=== PATIENT | female | born 1960 | race Caucasian/White ===

== ENCOUNTER → 2020-01-19 14:28 | Outpatient (BNVA) | payer OTHER, SELFPAY | PROVIDERS: PCP Internal Medicine; Referring Provider Internal Medicine; Visit Provider Hospitalist | DX: Z76.89 Persons encountering health services in other specified circumstances (principal) ==

== ENCOUNTER 2020-12-28 14:37 | Outpatient (REF) | payer OTHER, SELFPAY ==
--- NOTE | ~2020-12-28 | CT_ITS ---
EXAMINATION: CT CHEST SCREENING CLINICAL INFORMATION: 40 years of smoking, one pack a day. Quit 5 years ago. COMPARISON: None. TECHNIQUE: Multidetector volumetric CT imaging of the chest is performed without contrast using low dose technique. Additional 2D coronal and sagittal reformatted images and axial 3D maximum intensity projection (MIP) images are generated on the CT workstation. This CT examination was performed using dose optimization techniques as appropriate, variously including the following: *Automated exposure control *Adjustment of mA and/or kV according to patient size (this includes techniques or standardized protocols for targeted exams where dose is matched to indication/reason for exam; i.e. extremities or head) *Use of iterative reconstruction technique DLP: 38 mGy-cm FINDINGS: LUNGS: There is mild emphysematous changes of lungs without any acute pneumonic process. There is a 1 mm nodule in the lingula axial image 254/6. No additional pulmonary nodules, mass or groundglass density seen.. MEDIASTINUM: The thyroid lobes are symmetric and normal. The central trachea and the bronchi are widely patent. Heart size and the great vessels are normal caliber. There is no pericardial effusion. PLEURA: There is no pleural effusion. No pleural mass or thickening. AXILLA: No lymphadenopathy. UPPER ABDOMEN: Visualized liver, spleen, pancreas and bilateral adrenal glands are unremarkable. OSSEOUS STRUCTURES: No lytic or sclerotic process seen. CT/CT lung screening IMPRESSION: Mild emphysematous changes of lungs without any acute pneumonic process. 1 mm nodule visualized in the lingula. ASSESSMENT: Lung-RADS category 2: Benign RECOMMENDATION: Low-dose annual CT chest.
== END 2020-12-28 14:38 | disposition home or self-care (01) ==
LOC: HO.CT 14:37
PROVIDERS: Visit Provider Physician Assistant Medical
DX: Z12.2 Encounter for screening for malignant neoplasm of respiratory organs (principal); Z87.891 Personal history of nicotine dependence
CPT/HCPCS: 71271

== ENCOUNTER → 2021-06-07 13:20 | Outpatient (BNVA) | payer OTHER, SELFPAY | PROVIDERS: PCP Internal Medicine; Visit Provider Hospitalist | DX: J43.9 Emphysema, unspecified (principal); R91.8 Other nonspecific abnormal finding of lung field; Z87.891 Personal history of nicotine dependence | CPT/HCPCS: 99212 ==

== ENCOUNTER 2022-06-09 15:04 | Outpatient (REF) | payer OTHER, SELFPAY ==
--- NOTE | ~2022-06-09 | CT_ITS ---
EXAMINATION: LUNG CANCER SCREENING CT CHEST WITHOUT CONTRAST CLINICAL INFORMATION: Former smoker with 40 pack year history, quit one year ago COMPARISON: 12/28/2020 TECHNIQUE: Multidetector volumetric CT imaging of the chest was obtained noncontrast using low dose screening CT technique. Axial thin section 0.625 mm reformations in soft tissue and lung windows were obtained. Sagittal and coronal reformations were obtained. Axial MIP images were also created and reviewed. This CT examination was performed using dose optimization techniques as appropriate, variously including the following: *Automated exposure control *Adjustment of mA and/or kV according to patient size (this includes techniques or standardized protocols for targeted exams where dose is matched to indication/reason for exam; i.e. extremities or head) *Use of iterative reconstruction technique TOTAL EXAM DLP: 41 mGy-cm. FINDINGS: PULMONARY NODULES: No suspicious pulmonary nodules. There are a few stable punctate micronodules (see mac images). LUNGS / PLEURA: Mild emphysema. Diffuse mild bronchial wall thickening without bronchiectasis. Stable biapical pleural-parenchymal scarring. No pleural effusion or pneumothorax. MEDIASTINUM / YULIET: Heart normal in size without pericardial effusion. Great vessels normal caliber. No lymphadenopathy. Coronary calcifications present. Imaged thyroid gland unremarkable. CHEST WALL / AXILLA: Unremarkable. UPPER ABDOMEN: Included portions grossly unremarkable allowing for limitations in technique. OSSEOUS STRUCTURES: No acute or suspicious osseous abnormalities. CT/CT lung screening IMPRESSION: * No evidence of pulmonary malignancy. * There are no pulmonary nodules that meet criteria for short interval follow-up at this time. ASSESSMENT: Lung RADS category: 2. Benign appearance or behavior. Nodules with a very low likelihood of becoming a clinically active cancer due to size or lack of growth. Continue annual screening with low-dose CT in 12 months. Probability of malignancy less than 1%. INCIDENTAL FINDINGS (S CATEGORY): None. RECOMMENDATION: Follow up low dose CT chest in 1 year.
== END 2022-06-09 15:05 | disposition home or self-care (01) ==
LOC: HO.CT 15:04
PROVIDERS: PCP Internal Medicine; Visit Provider Physician Assistant Medical
DX: Z12.2 Encounter for screening for malignant neoplasm of respiratory organs (principal); Z87.891 Personal history of nicotine dependence
CPT/HCPCS: 71271

== ENCOUNTER 2023-02-05 15:02 | Outpatient (AMB) | payer OTHER, SELFPAY ==
--- NOTE | 2023-02-05 15:08 | A.OFFVIS_ITS ---
Intake Vital Signs 02/05/23 15:09 Height 5 ft 8 in Weight 121 lb BMI 18.4 Pulse 55 Pulse Source Pulse Oximeter Pulse Oximetry (%) 98 Oxygen Delivery Method Room Air Intake Visit Reasons: COPD Stockfeed Miller Required: No Allergies Latex Allergy (Mild, Uncoded 02/05/23 15:10) Rash and Hives HPI HPI Comments History of Present Illness Details The patient is a 62-year-old woman was a former smoker with a known history of COPD, pulmonary nodules. Her nodules have been followed for many ye ars and had been stable during her last CT scan I believe in 2018. The patient has had a rescue inhaler that she has not using a few years. At this point the medications and needs to get a new 1. She does have some dyspnea on exertion but is mild in usually gets better with rest. She denies any significant coughing. Her major complaint right now significant abdominal pain even after small amount eating. 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 She was referred to a vascular surgery in [facility] to the surgery. She was not sure about done therefore requested a 2nd opinion in [place]. Unfortunately, there were not able to help since the did have a lot of the information that she has had previously. As far as the pulmonary nodules she has been very stable. She did quit smoking about 5-6 years ago. She does carry a greater than 30 pack-year history of smoking as she started smoking in her teens. Therefore, I will refer her to the lung cancer screening program as the best way to follow this pulmonary nodules. 01/19/2020 the patient has a telephone visit. Overall doing well. He has not required any inhalers. She has been active exercising. Denies any smoking or any secondhand smoke. She does have a cough intermittently. He is usually nonproductive. We did review her CT scan of the chest that she had back in September 2019 demonstrating small pulmonary nodules. She also has hyperinflation of the lungs. No significant findings. Her next CAT scan will be for September of 2020. Otherwise patient is without any complaints. 06/07/2021 the patient is here for a pulmonary follow-up visit. Overall she is doing well. She has been staying active. Denies any significant shortness of breath. She still complains of a cough which is usually productive in nature. She is not interested in using any inhalers at this time. She does have a rescue inhaler that she has never used. She does not want to get d ependent on it . She is concerned because of the respiratory issues that she has developed another pupils are around at still smokes do not have these respiratory symptoms. Explained to her that is related to her genetic makeup and how she deals with environmental exposures. 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 We did review her CT scan of the chest again demonstrating very small pulmonary nodules that need follow-up. She has the scheduled low- dose CT scan for the fall of 2021. 02/05/2023 the patient is here for a pulmonary follow-up visit. The patient is feeling better at this time. However, several weeks ago she started feeling some chest tightness. Was not sure if it was related to her airway disease or something else. The patient ran out of her rescue inhaler as well. She is participating the lung cancer screening program so therefore we did review the CT scan that she had over the summer. No evidence of any acute disease. Does have some areas suggestive of bronchitis. In addition to that stable pulmonary nodules. She will have a repeat CT scan a year from the last 1. This is all based on the lung cancer screening program. Will go ahead and provide her with a short-acting beta agonist. We contemplated the use of a Symbicort inhaler as needed. However, the patient is resistant to the idea of taking too much medication. Therefore will stick with the short-acting beta agonist. I did provide her with a peak flow. Therefore she can measure her peak flows when she is having episodes of chest tightness to assess her airway resistance before she treats herself with the inhaler. Will have her undergo pulmonary function studies when she returns. If the patient has any worsening symptoms prior to the next visit she will call the office for an earlier assessment. [facility] Medical History (Updated 02/05/23 @ 22:23 by Sae Hernandez MD) Personal history of nicotine dependence Pulmonary nodules COPD (chronic obstructive pulmonary disease) Social History (Updated 06/07/21 @ 13:34 by GUS Johnson) Patient Tobacco Use Status: Former Tobacco user Tobacco use type: Cigarette Years Smoked: 30 Years Review of Systems Const Denies night sweats ENT Denies change in voice, Denies lip swelling, Denies mouth pain, Reports nasal congestion, Reports nasal discharge and Denies tongue swelling Card Denies chest pain and Denies dyspnea on exertion Resp Denies chest congestion, Reports cough and Denies dyspnea on exertion GI Denies abdominal pain Musc Denies no additional complaints Neuro Denies Neuro-related abnormal movements Psych Denies no additional complaints Nader/Lymph Denies easy bleeding and Denies lymphadenopathy Aller/Immun Denies lip swelling and Denies tongue swelling Physical Exam Vital Signs: Last Vital Signs Pulse 55 02/05/23 15:09 Pulse Ox 98 02/05/23 15:09 Oxygen Delivery Method Room Air 02/05/23 15:09 BMI result Body Mass Index 18.4 Const General: alert Neck Neck: Yes normal visual inspection, Yes full ROM and Yes no lymphadenopathy Chest Chest palpation & inspection: normal inspection of the chest Resp Effort & Inspection: normal respiratory effort Auscultation: clear to auscultation bilaterally and no wheezes Cardio Rate: regular rate Rhythm: regular rhythm Heart sounds: S1 normal heart sound present and S2 normal heart sound present GI Palpation (GI): Soft to palpation and nontender Auscultation: normal bowel sounds Skin General skin exam: rashes and/or lesions noted Assessment & Plan Assessment & Plan (1) COPD (chronic obstructive pulmonary disease): Code(s): J44.9 - Chronic obstructive pulmonary disease, unspecified Qualifiers: COPD type: chronic bronchitis Chronic bronchitis type: simple Qualified Code(s): J41.0 - Simple chronic bronchitis Plan: MALLY as needed (2) Pulmonary nodules: Code(s): R91.8 - Other nonspecific abnormal finding of lung field Plan: CT chest LDCT 09/2020 Plan continue short-acting beta agonist as needed Peak flows low-dose CT scan yearly RADS 2 PFTs 6 months F/U in 6 months Orders: Orders PFT pulmonary function test 5 Months J44.9 - Chronic obstructive pulmonary disease, unspecified Medications: Changed From albuterol sulfate 90 mcg/actuation inhalation To albuterol sulfate 90 mcg/actuation 2 inhalations inhalation Q6H 30 days PRN 1 ea 12RF shortness of breath or wheezing Coding Level of Care Code Est Pt Level 4 (93447) Diagnoses Simple chronic bronchitis J41.0 COPD type: chronic bronchitis Chronic bronchitis type: simple Pulmonary nodules R91.8 Time Spent (min) 17
[2023-02-05 15:09] VITALS: PULSE 55; O2SAT 98; BMI 18.4
== END 2023-02-05 15:30 | disposition home or self-care (01) ==
PROVIDERS: PCP Internal Medicine; Visit Provider Hospitalist
DX: J41.0 Simple chronic bronchitis (principal); R91.8 Other nonspecific abnormal finding of lung field
CPT/HCPCS: 99214

== ENCOUNTER → 2023-02-05 15:02 | Outpatient (BNVA) | payer OTHER, SELFPAY | PROVIDERS: PCP Internal Medicine; Visit Provider Hospitalist ==

== ENCOUNTER 2023-03-29 11:48 | Outpatient (REF) | payer OTHER, SELFPAY ==
--- NOTE | ~2023-03-29 | XR_ITS ---
EXAMINATION: XR CHEST CLINICAL INFORMATION: Simple chronic bronchitis. COMPARISON: CT lung screening 06/09/2022. TECHNIQUE: 2 views of the chest were obtained. FINDINGS: There is evidence of COPD with hyperinflation. The heart size is normal. No infiltrates, effusions, or lung masses are seen. There is a biconvex thoracolumbar scoliosis present. XR/XR chest 2V IMPRESSION: COPD. No acute intrathoracic disease.
== END 2023-03-29 11:49 | disposition home or self-care (01) ==
LOC: HO.XRAY 11:48
PROVIDERS: Visit Provider Hospitalist
DX: J41.0 Simple chronic bronchitis (principal)
CPT/HCPCS: 71046

== ENCOUNTER 2023-05-14 10:29 | Outpatient (REF) | payer OTHER, SELFPAY ==
--- NOTE | 2023-05-14 10:34 | ECG_ITS ---
Test Reason : COPD Blood Pressure : / mmHG Vent. Rate : 058 BPM Atrial Rate : 058 BPM P-R Int : 130 ms QRS Dur : 082 ms QT Int : 452 ms P-R-T Axes : 074 079 070 degrees QTc Int : 443 ms Sinus bradycardia Otherwise normal ECG No previous ECGs available Referred By: Sae Hernandez Electronically Signed By:SCOUT ROBLES
[2023-05-14 10:49] LABS: MANUAL DIFF FLAG NO
[2023-05-14 10:51] LABS: Basophils Percent Auto 0.5 % (0-2); Eosinophils Absolute Auto 0.1 X10*3/uL (0.0-0.4); Eosinophils Percent Auto 0.9 % (0-4); Hematocrit 46.1 % (37.0-47.0); Hemoglobin 15.5 g/dl (12.0-16.0); Imm Gran Abs Auto 0.02 X10*3/uL (0.00-0.03); Imm Gran Pct Auto 0.3 % (0.0-0.4); Lymphocytes Absolute Auto 2.6 X10*3/uL (1.2-4.9); Lymphocytes Percent Auto 33.8 % (20-40); Mean Corpuscular HGB Conc 33.6 g/dl (31.0-35.0); Mean Corpuscular Hemoglobin 31.5 pg (27.0-33.0); Mean Corpuscular Volume 93.7 fL (80.0-98.0); Mean Platelet Volume 10.4 fL (9.4-12.3); Monocytes Absolute Auto 0.4 X10*3/uL (0.1-1.2); Neutrophils Absolute Auto 4.6 x10*3/uL (2.0-8.3); Neutrophils Percent Auto 59.5 % (45-73); Platelet Count 277 X10*3/uL (160-400); Red Blood Count 4.92 X10*6/uL (4.20-5.50); Red Cell Distribution Width 12.5 % (11.0-16.0); White Blood Count 7.6 X10*3/uL (4.8-10.8)
[2023-05-14 11:02] LABS: Anion Gap 10 (12-20); Blood Urea Nitrogen 13 mg/dL (9-16); Calcium 10.1 mg/dL (8.4-10.2); Carbon Dioxide 31 mmol/L (22-29); Chloride 103 mmol/L (96-108); Estimated Glomerular Filt Rate > 60; Glucose Random 90 mg/dL (60-115); Potassium 4.1 mmol/L (3.3-5.1); Sodium 140 mmol/L (135-145)
[2023-05-14 11:08] LABS: D Dimer High Sensitivity < 150 NG/ML
[2023-05-14 11:13] LABS: Troponin-I High Sensitivity < 2.7 ng/L (<3.5-17.0)
[2023-05-14 11:32] LABS: Erythrocyte Sedimentation Rate 5 MM/HR (0-20)
== END 2023-05-14 10:30 | disposition home or self-care (01) ==
LOC: HO.LAB 10:29
PROVIDERS: PCP Internal Medicine; Visit Provider Hospitalist
DX: J44.9 Chronic obstructive pulmonary disease, unspecified (principal); R07.81 Pleurodynia
CPT/HCPCS: 36415; 80048; 84484; 85025; 85379; 85652; 93005

== ENCOUNTER → 2023-05-14 10:34 | Outpatient (BNV) | payer OTHER, SELFPAY | PROVIDERS: PCP Internal Medicine; Visit Provider Internal Medicine | DX: R00.1 Bradycardia, unspecified (principal) | CPT/HCPCS: 93010 ==

== ENCOUNTER 2023-07-31 15:16 | Outpatient (REF) | payer OTHER, SELFPAY ==
--- NOTE | ~2023-07-31 | CT_ITS ---
EXAMINATION: CT LOW-DOSE SCREENING CHEST WITHOUT CONTRAST CLINICAL INFORMATION: Personal history of nicotine dependence. The patient has a 40 pack-year history of smoking, having quit 1 year ago. COMPARISON: Chest x-ray 03/29/[address] chest 06/09/2022. TECHNIQUE: Multidetector volumetric CT imaging of the chest is performed on a Siemens SOMATOM Definition scanner without contrast using low dose technique. Additional 2D coronal and sagittal reformatted images and axial 3D maximum intensity projection (MIP) images are generated on the CT workstation. This CT examination was performed using dose optimization techniques as appropriate, variously including the following: *Automated exposure control *Adjustment of mA and/or kV according to patient size (this includes techniques or standardized protocols for targeted exams where dose is matched to indication/reason for exam; i.e. extremities or head) *Use of iterative reconstruction technique TOTAL EXAM DLP: 36 mGy-cm. CTDIvol: 0.93 mGy. FINDINGS: PULMONARY NODULES: Some small micronodules are present with most unchanged. The largest has increased in size currently measuring 3 mm in the right middle lobe, previously 2 mm (5:384 compare prior 6:390). LUNGS: Lungs bilaterally symmetrically expanded. Moderate emphysematous changes are seen along with [id number] bronchial thickening. No effusion or pneumothorax. Central airways patent. MEDIASTINUM: No mediastinal, hilar or axillary adenopathy or free fluid collection. CORONARY ARTERY CALCIFICATION: None visualized on this study. THYROID GLAND: Unremarkable to the extent seen. CARDIOVASCULAR STRUCTURES: Aortic and heart size normal. No pericardial effusion. CHEST WALL/AXILLA: Unremarkable. UPPER ABDOMEN: Included portions of the solid organs in the upper abdomen unremarkable on noncontrast imaging. OSSEOUS STRUCTURES: No suspicious focal findings. CT/CT lung screening IMPRESSION: One pulmonary nodule has increased from 2 to 3 mm in size. As this has increased in size, this is considered suspicious and short-term follow-up is recommended ASSESSMENT: 1. Lung-RADS Category 4A: Suspicious findings. N/A 2. Lung-RADS Category S: Negative. There are no clinically significant or potentially clinically significant findings not related to the lungs requiring urgent additional evaluation. RECOMMENDATION: A 3-month follow up low-dose lung CT scan is recommended. An order for CT LUNG CANCER SCREENING SHORT INTERVAL FOLLOWUP ([id number]) can be placed.
== END 2023-07-31 15:17 | disposition home or self-care (01) ==
LOC: HO.CT 15:16
PROVIDERS: PCP Internal Medicine; Visit Provider Nurse Practitioner Family
DX: Z12.2 Encounter for screening for malignant neoplasm of respiratory organs (principal); Z87.891 Personal history of nicotine dependence
CPT/HCPCS: 71271

== ENCOUNTER 2023-09-17 14:30 | Outpatient (AMB) | payer OTHER, SELFPAY ==
[2023-09-17 14:34] VITALS: BP 122/70; PULSE 59; O2SAT 99; BMI 18.4
--- NOTE | 2023-09-17 14:34 | MHC.OFFVIS ---
Vital Signs 09/17/23 14:34 Height 5 ft 8 in Weight 121 lb BMI 18.4 BP 122/70 Blood Pressure Location Lt brachial Position Sitting Pulse 59 Pulse Source Pulse Oximeter Pulse Oximetry (%) 99 Oxygen Delivery Method Room Air Intake Visit Reasons: copd Solids Control Technician Required: No Allergies Latex Allergy (Mild, Uncoded 09/17/23 14:37) Rash and Hives HPI Comments Details: The patient is a 63-year-old woman was a former smoker with a known history of COPD, pulmonary nodules. Her nodules have been followed for many years and had been stable during her last CT scan I believe in 2018. The patient has had a rescue inhaler that she has not using a few years. At this point the medications and needs to get a new 1. She does have some dyspnea on exertion but is mild in usually gets better with rest. She denies any significant coughing. Her major complaint right now significant abdominal pain even after small amount eating. 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 She was referred to a vascular surgery in [facility] to the surgery. She was not sure about done therefore requested a 2nd opinion in [place]. Unfortunately, there were not able to help since the did have a lot of the information that she has had previously. As far as the pulmonary nodules she has been very stable. She did quit smoking about 5-6 years ago. She does carry a greater than 30 pack-year history of smoking as she started smoking in her teens. Therefore, I will refer her to the lung cancer screening program as the best way to follow this pulmonary nodules. 01/19/2020 the patient has a telephone visit. Overall doing well. He has not required any inhalers. She has been active exercising. Denies any smoking or any secondhand smoke. She does have a cough intermittently. He is usually nonproductive. We did review her CT scan of the chest that she had back in September 2019 demonstrating small pulmonary nodules. She also has hyperinflation of the lungs. No significant findings. Her next CAT scan will be for September of 2020. Otherwise patient is without any complaints. 06/07/2021 the patient is here for a pulmonary follow-up visit. Overall she is doing well. She has been staying active. Denies any significant shortness of breath. She still complains of a cough which is usually productive in nature. She is not interested in using any inhalers at this time. She does have a rescue inhaler that she has never used. She does not want to get dependent on it . She is concerned because of the respiratory issues that she has developed another pupils are around at still smokes do not have these respiratory symptoms. Explained to her that is related to her genetic makeup and how she deals with environmental exposures. 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 We did review her CT scan of the chest again demonstrating very small pulmonary nodules that need follow-up. She has the scheduled low-dose CT scan for the fall of 2021. 02/05/2023 the patient is here for a pulmonary follow-up visit. The patient is feeling better at this time. However, several weeks ago she started feeling some chest tightness. Was not sure if it was related to her airway disease or something else. The patient ran out of her rescue inhaler as well. She is participating the lung cancer screening program so therefore we did review the CT scan that she had over the summer. No evidence of any acute disease. Does have some areas suggestive of bronchitis. In addition to that stable pulmonary nodules. She will have a repeat CT scan a year from the last 1. This is all based on the lung cancer screening program. Will go ahead and provide her with a short-acting beta agonist. We contemplated the use of a Symbicort inhaler as needed. However, the patient is resistant to the idea of taking too much medication. Therefore will stick with the short-acting beta agonist. I did provide her with a peak flow. Therefore she can measure her peak flows when she is having episodes of chest tightness to assess her airway resistance before she treats herself with the inhaler. Will have her undergo pulmonary function studies when she returns. If the patient has any worsening symptoms prior to the next visit she will call the office for an earlier assessment. 09/17/2023 the patient is here for a pulmonary follow-up visit. The patient overall has been doing okay. She has been concerned because of the findings on her last CT scan. The patient did have a pulmonary nodule that increased in size in the right middle lobe area. She had other stable nodules. I did review the CT scan with the patient. The nodule appears to be solid and does not have any evidence of any spiculations which is reassuring. No subsolid component as well. The patient understands that based on the fact that the nodules slightly increased in size will have to repeat the CT scan sooner than usual. Therefore plan to repeat the CT scan 6 months from her last 1 which would be in 02/06/2024. In the meantime she continues to have some dyspnea on exertion specially with heated humidity. She does have a rescue inhaler but she rarely uses it. Otherwise patient is without any other complaints. Will plan to follow-up after her repeat CT scan. If she has any concerns or any issues she will call for earlier assessment [facility] Medical History (Updated 08/23/23 @ 08:17 by Naye Brink PA-C) Personal history of nicotine dependence Pulmonary nodules COPD (chronic obstructive pulmonary disease) Social History (Updated 06/07/21 @ 13:34 by GUS Johnson) Patient Tobacco Use Status: Former Tobacco user Tobacco use type: Cigarette Years Smoked: 30 Years Review of Systems Const Denies night sweats ENT Denies change in voice, Denies lip swelling, Denies mouth pain, Reports nasal congestion, Reports nasal discharge and Denies tongue swelling Card Denies chest pain and Denies dyspnea on exertion Resp Denies chest congestion, Reports cough and Denies dyspnea on exertion GI Denies abdominal pain Musc Denies no additional complaints Neuro Denies Neuro-related abnormal movements Psych Denies no additional complaints Nader/Lymph Denies easy bleeding and Denies lymphadenopathy Aller/Immun Denies lip swelling and Denies tongue swelling Physical Exam Vital Signs: Last Vital Signs Pulse 59 09/17/23 14:34 BP 122/70 09/17/23 14:34 Pulse Ox 99 09/17/23 14:34 Oxygen Delivery Method Room Air 09/17/23 14:34 BMI result Body Mass Index 18.4 Const General: alert Neck Neck: Yes normal visual inspection, Yes full ROM and Yes no lymphadenopathy Chest Chest palpation & inspection: normal inspection of the chest Resp Effort & Inspection: normal respiratory effort Auscultation: no wheezes and diminished lung sounds Cardio Rate: regular rate Rhythm: regular rhythm Heart sounds: S1 normal heart sound present and S2 normal heart sound present GI Palpation (GI): Soft to palpation and nontender Auscultation: normal bowel sounds Skin General skin exam: rashes and/or lesions noted Assessment & Plan Assessment & Plan (1) COPD (chronic obstructive pulmonary disease): Code(s): J44.9 - Chronic obstructive pulmonary disease, unspecified Category: Medical Qualifiers: COPD type: chronic bronchitis Chronic bronchitis type: simple Qualified Code(s): J41.0 - Simple chronic bronchitis Plan: MALLY as needed (2) Pulmonary nodules: Code(s): R91.8 - Other nonspecific abnormal finding of lung field Category: Medical Plan: CT chest LDCT 09/2020 Plan continue short-acting beta agonist as needed Peak flows low-dose CT scan yearly RADS 4A, slight increase in the RML nodule 2->3mm. CT chest 01/2024 F/U in 4-6 months Coding Level of Care Code Est Pt Level 4 (33627) Diagnoses Simple chronic bronchitis J41.0 COPD type: chronic bronchitis Chronic bronchitis type: simple Pulmonary nodules R91.8 Time Spent (min) 18
== END 2023-09-17 14:59 | disposition home or self-care (01) ==
PROVIDERS: PCP Internal Medicine; Visit Provider Hospitalist
DX: J41.0 Simple chronic bronchitis (principal); R91.8 Other nonspecific abnormal finding of lung field
CPT/HCPCS: 99214

== ENCOUNTER → 2023-09-17 14:30 | Outpatient (BNVA) | payer OTHER, SELFPAY | PROVIDERS: PCP Internal Medicine; Visit Provider Hospitalist ==

== ENCOUNTER 2024-02-18 15:47 | Outpatient (REF) | payer OTHER, SELFPAY | END 2024-02-18 15:48 | disposition home or self-care (01) | LOC: HO.CT 15:47 | PROVIDERS: PCP Internal Medicine; Visit Provider Physician Assistant Medical | DX: R91.8 Other nonspecific abnormal finding of lung field (principal); Z87.891 Personal history of nicotine dependence | CPT/HCPCS: 71250 ==

== ENCOUNTER → 2024-02-18 15:48 | Outpatient (BNV) | payer OTHER, SELFPAY | PROVIDERS: PCP Internal Medicine; Visit Provider Radiology Diagnostic Radiology | DX: R91.1 Solitary pulmonary nodule (principal) | CPT/HCPCS: 71250 ==

== ENCOUNTER 2024-09-23 15:22 | Outpatient (AMB) | payer OTHER, SELFPAY ==
--- NOTE | 2024-09-23 15:23 | MHC.OFFVIS ---
Vital Signs 09/23/24 15:24 Height 5 ft 7.5 in Weight 122 lb BMI 18.8 BP 104/60 Blood Pressure Location Rt brachial Position Sitting Pulse 65 Pulse Source Pulse Oximeter Pulse Oximetry (%) 92 Oxygen Delivery Method Room Air Intake Visit Reasons: COPD Allergies Latex Allergy (Mild, Uncoded 09/17/23 14:37) Rash and Hives HPI Comments Details: The patient is a 64-year-old woman was a former smoker with a known history of COPD, pulmonary nodules. Her nodules have been followed for many years and had been stable during her last CT scan I believe in 2018. The patient has had a rescue inhaler that she has not using a few years. At this point the medications and needs to get a new 1. She does have some dyspnea on exertion but is mild in usually gets better with rest. She denies any significant coughing. Her major complaint right now significant abdominal pain even after small amount eating. 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 She was referred to a vascular surgery in [facility] to the surgery. She was not sure about done therefore requested a 2nd opinion in [place]. Unfortunately, there were not able to help since the did have a lot of the information that she has had previously. As far as the pulmonary nodules she has been very stable. She did quit smoking about 5-6 years ago. She does carry a greater than 30 pack-year history of smoking as she started smoking in her teens. Therefore, I will refer her to the lung cancer screening program as the best way to follow this pulmonary nodules. 01/19/2020 the patient has a telephone visit. Overall doing well. He has not required any inhalers. She has been active exercising. Denies any smoking or any secondhand smoke. She does have a cough intermittently. He is usually nonproductive. We did review her CT scan of the chest that she had back in September 2019 demonstrating small pulmonary nodules. She also has hyperinflation of the lungs. No significant findings. Her next CAT scan will be for September of 2020. Otherwise patient is without any complaints. 06/07/2021 the patient is here for a pulmonary follow-up visit. Overall she is doing well. She has been staying active. Denies any significant shortness of breath. She still complains of a cough which is usually productive in nature. She is not interested in using any inhalers at this time. She does have a rescue inhaler that she has never used. She does not want to get dependent on it . She is concerned because of the respiratory issues that she has developed another pupils are around at still smokes do not have these respiratory symptoms. Explained to her that is related to her genetic makeup and how she deals with environmental exposures. Patient also worked in the air [employer] basis for many years and exposed to significant fumes as well as the previous smoking. We did review her CT scan of the chest again demonstrating very small pulmonary nodules that need follow-up. She has the scheduled low-dose CT scan for the fall of 2021. 02/05/2023 the patient is here for a pulmonary follow-up visit. The patient is feeling better at this time. However, several weeks ago she started feeling some chest tightness. Was not sure if it was related to her airway disease or something else. The patient ran out of her rescue inhaler as well. She is participating the lung cancer screening program so therefore we did review the CT scan that she had over the summer. No evidence of any acute disease. Does have some areas suggestive of bronchitis. In addition to that stable pulmonary nodules. She will have a repeat CT scan a year from the last 1. This is all based on the lung cancer screening program. Will go ahead and provide her with a short-acting beta agonist. We contemplated the use of a Symbicort inhaler as needed. However, the patient is resistant to the idea of taking too much medication. Therefore will stick with the short-acting beta agonist. I did provide her with a peak flow. Therefore she can measure her peak flows when she is having episodes of chest tightness to assess her airway resistance before she treats herself with the inhaler. Will have her undergo pulmonary function studies when she returns. If the patient has any worsening symptoms prior to the next visit she will call the office for an earlier assessment. 09/17/2023 the patient is here for a pulmonary follow-up visit. The patient overall has been doing okay. She has been concerned because of the findings on her last CT scan. The patient did have a pulmonary nodule that increased in size in the right middle lobe area. She had other stable nodules. I did review the CT scan with the patient. The nodule appears to be solid and does not have any evidence of any spiculations which is reassuring. No subsolid component as well. The patient understands that based on the fact that the nodules slightly increased in size will have to repeat the CT scan sooner than usual. Therefore plan to repeat the CT scan 6 months from her last 1 which would be in 02/06/2024. In the meantime she continues to have some dyspnea on exertion specially with heated humidity. She does have a rescue inhaler but she rarely uses it. Otherwise patient is without any other complaints. Will plan to follow-up after her repeat CT scan. If she has any concerns or any issues she will call for earlier assessment. 09/23/2024 the patient is here for pulmonary follow-up visit. Overall she is doing okay although she does complaint of some heaviness and pressure in the chest area anteriorly in the upper part of her chest. [id number] severity. It is intermittent right now she does not feel it. She feels is worse due to the heat and humidity. The patient does have a rescue inhaler but she does not remember how to use it. We did going through instructions and I did give her a spacer to make the use of the inhaler easier. Will keep her with the short-acting beta agonist for now. In the meantime we also did review her CT scan of the chest that she got through the lung cancer screening program back in February 2024. She does have some apical scarring in addition to that some small subcentimeter pulmonary nodules. She was downgraded to a rods to and she is going to be getting a CAT scan again in February 2025. The patient will start using her albuterol hopefully it helps her pressures chest pressure. If it does not she can always get a chest x-ray close to home. The patient otherwise may benefit from a stronger inhaler a maintenance inhaler in case she does not get a full response to the rescue inhaler. Will follow-up in March 2025 with pulmonary function studies if she has any issues prior to that she will call for an early evaluation. [facility] Medical History (Updated 08/23/23 @ 08:17 by Naye Brink PA-C) Personal history of nicotine dependence Pulmonary nodules COPD (chronic obstructive pulmonary disease) Social History (Updated 06/07/21 @ 13:34 by GUS Johnson) Patient Tobacco Use Status: Former Tobacco user Tobacco use type: Cigarette Years Smoked: 30 Years Review of Systems Const Denies night sweats ENT Denies change in voice, Denies lip swelling, Denies mouth pain, Reports nasal congestion, Reports nasal discharge and Denies tongue swelling Card Reports chest pain and Denies dyspnea on exertion Resp Denies chest congestion, Reports cough and Denies dyspnea on exertion GI Denies abdominal pain Musc Denies no additional complaints Neuro Denies Neuro-related abnormal movements Psych Denies no additional complaints Nader/Lymph Denies easy bleeding and Denies lymphadenopathy Aller/Immun Denies lip swelling and Denies tongue swelling Physical Exam Vital Signs: Last Vital Signs Pulse 65 09/23/24 15:24 BP 104/60 09/23/24 15:24 Pulse Ox 92 09/23/24 15:24 Oxygen Delivery Method Room Air 09/23/24 15:24 BMI result Body Mass Index 18.8 Const General: alert Neck Neck: Yes normal visual inspection, Yes full ROM and Yes no lymphadenopathy Chest Chest palpation & inspection: normal inspection of the chest Resp Effort & Inspection: normal respiratory effort Auscultation: no wheezes and diminished lung sounds Cardio Rate: regular rate Rhythm: regular rhythm Heart sounds: S1 normal heart sound present and S2 normal heart sound present GI Palpation (GI): Soft to palpation and nontender Auscultation: normal bowel sounds Skin General skin exam: rashes and/or lesions noted Assessment & Plan Assessment & Plan (1) COPD (chronic obstructive pulmonary disease): Code(s): J44.9 - Chronic obstructive pulmonary disease, unspecified Category: Medical Qualifiers: COPD type: chronic bronchitis Chronic bronchitis type: simple Qualified Code(s): J41.0 - Simple chronic bronchitis Plan: MALLY as needed (2) Pulmonary nodules: Code(s): R91.8 - Other nonspecific abnormal finding of lung field Category: Medical Plan: CT chest LDCT 09/2020 Plan continue short-acting beta agonist as needed, spacer provided low-dose CT scan 02/2025 CXR if chest pressure persist if Chest pressure does not respond to MALLY, then should have a cardiac eval. PFTs F/U in 4-6 months Orders: Orders PFT pulmonary function test 4 Months J41.0 - Simple chronic bronchitis XR chest 2V Today J41.0 - Simple chronic bronchitis Coding Level of Care Code Est Pt Level 4 (35676) Complex EM visit Add On G2211 Diagnoses Simple chronic bronchitis J41.0 COPD type: chronic bronchitis Chronic bronchitis type: simple Pulmonary nodules R91.8 Time Spent (min) 17
[2024-09-23 15:24] VITALS: BP 104/60; PULSE 65; O2SAT 92; BMI 18.8
--- OUTSIDE RECORDS SUMMARY | 2024-09-23 15:53 | XMS_ITS ---
Author Name [facility] Organization Unknown Care Team Organization Name Specialty Phone Email Start Date End [facility] NO PCP Primary Care 11/21/2022 11/21/2022
--- OUTSIDE RECORDS SUMMARY | 2024-09-23 15:53 | XMS_ITS | Clinical Summary ---
Author Organization [facility] [address] [facility] Address [address] [place] [address] Phone Care Team Providers Care Preschool Assistant Principal Name Role Phone RadhacharletteSamantha Dumont DO Primary Care Pro vider Allergies Active Allergy Reactions Criticality Noted Date Comments Latex 07/12/2016 Medications multivitamin with minerals (MULTIPLE VITAMIN-MINERALS ORAL) Take by mouth. Active albuterol HFA (PROAIR HFA ; PROVENTIL HFA ; VENTOLIN HFA) 90 mcg/actuation inhaler Inhale 2 Puffs into the lungs every 4 hours as needed. Active cyanocobalamin (VITAMIN B-12) 1,000 mcg/mL injection 01/10/2024 Active famotidine (PEPCID) 40 mg tabletIndication s:Gastroesophage al reflux disease without esophagitis Take 1 tablet (40 mg total) by mouth 2 (two) times a day. 60 each 11 04/01/2024 Active Active Problems Problem Noted Date Diagnosed Date Irritable bowel syndrome wit h both constipation and diarrhea 04/01/2024 Assessment & Plan (04/01/2024 2:32 PM EST): Continue pain as directed by homeopathic provider. PTSD (post-traumatic stress disorder) 04/01/2024 Lung nodule 07/13/2017 Pulmonary fibrosis ([facility] V24, [facility] V28) [facility] obstructive pulmonar y disease ([facility] V24, [facility] V28) 10/02/2016 Gastroesophageal reflux disease 07/12/2016 Assessment & Plan (04/01/2024 2:32 PM EST): Refill famotidine 40mg BID, continue as directed -Discussed PPI, pt declined using these meds -Continue antacids as needed for breakthrough symptoms Orders: famotidine (PEPCID) 40 mg tablet; Take 1 tablet (40 mg total) by mouth 2 (two) times a day. Malignant melanoma ([facility] V24, [facility] V28) Surgical History Surgery Date Site/Laterality Comments BREAST LUMPECTOMY 03/19/2009 - 03/18/2010 COLONOSCOPY 02/20/2018 TAx3 COLONOSCOPY 05/17/2021 TAx1 recall 5yr ESOPHAGOGASTRODUODENOSCOPY 02/20/2018 normal ESOPHAGOGASTRODUODENOSCOPY 05/17/2021 normal Family History Medical History Relation Name Comments Crohn's disease Sister Colon cancer Neg Hx Relation Name Status Comments Sister Social History Tobacco Use Types Packs/Day Years Used Date Smoking Tobacco: Former Cigarettes Smokeless Tobacco: Never Alcohol Use Standard Drinks/Week Comments Yes 0 (1 standard drink = 0.6 oz pur e alcohol) rare Comments Unknown Sex and Gender Information Value Date Recorded Sex Assigned at Not on file Legal Sex Female 12:41 PM EST Gender Identity Not on file Sexual Orientation Not on file Obstetrics History Last Filed Vital Signs Vital Sign Reading Time Taken Comments Blood Pressure - - Pulse - - Temperature - - Respiratory Rate - - Oxygen Saturation - - Inhaled Oxygen Concentration - - Weight 56.2 kg (124 lb) 04/01/2024 1:40 PM EST Height 172.7 cm (5' 8 ) 04/01/2024 1:40 PM EST Body Mass Index 18.85 04/01/2024 1:40 PM EST Plan of Treatment Health Maintenance Due Date Last Done Comments Breast Cancer Screening 1960 DTaP,Tdap,and Td Vaccines (1 - Tdap) 1980 Pneumococcal Vaccine: 50+ Years (1 of 2 - PCV) 1980 Pneumococcal Vaccine: Pediatrics (0 to 5 Years) and At-Risk Patients (6 to 49 Years) (1 of 2 - PCV) 1980 Zoster Vaccines (1 of 2) 1980 Cervical Cancer Screening: Pap Smear 1982 RSV Immunization Adult Patients (1 - Risk 60-74 years 1-dose series) 2021 Colorectal Cancer Screening: Colonoscopy 02/14/2022 Depression Screening 02/14/2022 HIV Screening 02/14/2022 Hepatitis C Screening 02/14/2022 Social Influencers of Health Screening 02/14/2022 COVID-19 Vaccine ( season) 2023 12/25/2022, 12/07/2021, 01/17/2021, Additional history exists Influenza Vaccine (#1) 2024 HIB Vaccines Aged Out No longer eligi ble based on patient's age to complete this topic HPV Vaccines Aged Out No longer eligi ble based on patient's age to complete this topic Hepatitis A Vaccines Aged Out No long er eligible based on patient's age to complete this topic Hepatitis B Vaccines Aged Out No long er eligible based on patient's age to complete this topic IPV Vaccines Aged Out No longer eligi ble based on patient's age to complete this topic MMR Vaccines Aged Out No longer eligi ble based on patient's age to complete this topic Meningococcal ACWY Vaccine Aged Out N o longer eligible based on patient's age to complete this topic Meningococcal B Vaccine Aged Out No l onger eligible based on patient's age to complete this topic RSV Immunization Patients Under 20 months Aged Out No longer eligible based on patient's age to complete this topic Varicella Vaccines Aged Out No longer eligible based on patient's age to complete this topic Insurance [facility] Care Teams Preschool Assistant Principal Relationship Specialty Start Date End Date KraSamantha Palafox DO [facility] [address] [place] [address] PCP - General Internal Medicine 03/04/24
--- OUTSIDE RECORDS SUMMARY | 2024-09-23 15:54 | XMS_ITS | Data Portability ---
Author Organization [place] [facility] Address [address] [place] [id number] Assessment Encounter Date Assessment Date Assessment LastModified by Organization Details LastModified Time 05/28/2018 05/28/2018 Overview/History : 57-year-old female, due to DAH with a past medical history of COPD, GERD, was evaluated for complaints of URI symptoms with a fever. Her is also ill with similar symptoms. She reports a temperature of 100.8 degrees Fahrenheit today. She complains of generalized malaise and myalgias. She denies any headache, neck pain, chest pain, shortness of breath, arthralgias or any rashes. Exam: Pleasant female in no acute distress. Nontoxic appearing. Lungs clear to auscultation bilaterally. Heart sounds regular with no obvious murmurs. Moving all extremities without difficulty. DDx considered, but not limited to: Bronchitis. Pneumonia. Influenza like illness. PNA unlikely given clear lungs and O2 SAT 97. Plan/Discussion: The patient's symptoms are likely related to influenza. She does not meet criteria for Tamiflu treatment. I discussed using acetaminophen 3 times a day to help with fever and myalgias. She was instructed to drink 2 L of water per day to keep herself adequately hydrated. She was advised to follow up with her PCP or call [facility] for any shortness of breath or any new or worrisome symptoms. In order to obtain further information and compare any laboratory results/values, I have accessed old patient records. This information was pertinent in my medical decision making today. Time On Scene with Patient: 00:16:04 Not available 05/28/2018 19:20:20 Plan of Treatment Reminders Order Date Submit Date Provider Last Modified By Organization Details Last Modified Time Details Appointments None record ed. Lab None record ed. Referral None record ed. Procedures None record ed. Surgeries None record ed. Imaging None record ed. Medication Orders None record ed. Patient TargetsNo targets recorded. Patient Instructions Encounter Date Encounter Id Patient Instructions Last Modified By Organization Details Last Modified Time 05/28/2018 [id number] Influenza Discha rge Instructions Basic Information Influenza is a viral infection of the nose, throat and lungs. It usually comes on suddenly. The most common symptoms are chills, headache, fever, sore throat, dry cough, body aches, weakness and fatigue. Occasionally, people will have vomiting and diarrhea. Influenza is spread when droplets from an infected person are coughed or sneezed into the air, allowing healthy persons to breathe in these fine droplets and become infected. A patient with influenza will have millions of flu viruses contaminating their hands and face as well. The influenza virus can live up for 2 days on objects such as door knobs, grocery cart handles, elevator buttons, telephones, table tops etc. It is highly contagious. In addition, symptoms of influenza do not start until 2 days after the virus enters the body, so an infected person is contagious before they know that they are sick. A flu patient remains contagious for 24 hours after fever ends. Since it is a virus, antibiotics do not help. Instructions Medications: -Ibuprofen (or other non steroidal antiinflammatory drugs) and Tylenol are very important to help with the body aches and fever. People with influenza will often run high fevers for 5 days straight. High fevers are a major cause of dehydration in influenza, so trying to control fever is very important. Be sure to carefully read the bottles for the correct dosing (especially in children) instructions. -Nausea medicine may be prescribed: use as directed -Antiviral medicine may be prescribed. It is important to know that although these medicines are advertised to shorten the course of influenza, studies show that they reduce length of symptoms by only about a day in adults and 1 day in children. Your provider will discuss whether this medicine is recommended for you. If it is prescribed, be sure to take the entire course as written. -Intravenous (IV) fluids: Your Provider may have determined that you need some IV fluids for your symptoms. IV fluids will help reduce fever and improve dehydration. Self Care: -Oral hydration. Drink plenty of fluids to stay hydrated. Fever itself can make you dehydrated so you really need to stay on top of this. Fluids such as broth and gatorade are recommended. -Solid food. You will very likely have a poor appetite for solid food: this is OK and as long as you can continue to take plenty of fluids, do not worry if you do not take solid food for a few days. -Rest. Get plenty of rest. Do not push yourself to do more than your body is telling you as this can make you sicker. -Prevent spread of the influenza. Cover your mouth and nose when you cough and sneeze. Try to maintain a 6 foot distance from others. Consider wearing a surgical mask, especially around family members who may have chronic illnesses. Wash your hands often. Don t leave dirty tissues around the home. Seek Care Immediately if you -develop very rapid breathing or shortness of breath -become pale -pass out -cannot tolerate liquids by mouth -develop chest pain -become confused -develop rash -become confused -and for children, if they become so irritable that they are inconsolable have total resolution of your symptoms after 5-7 days and then become sick again with fever or any of the above symptoms If you have additional concerns or develop a change in your condition between 8am-10pm, please call [facility] at [phone] to help navigate your care. [facility] Not available 05/28/2018 19:02:32 Reason for Referral None Reported. Procedures Surgical History Date Name Laterality Status Provider Name and Address Organization Details Recorded Time excision of malignant neoplasm completed MAXIMO BERG NP [address], [place], [address], [place] - [facility] 05/28/2018 18:53:15 Imaging Results None recorded. Procedure Notes None recorded. Medical Equipment None Reported. Allergies No known drug allergies Medications Name Sig Start Date Stop Date Status Note LastModified by Organization Details LastModified Time omeprazole active Not Available Not Av ailable Not Available Vitals Date Recorded Oxygen saturation Oxygen saturation in Arterial blood by Pulse oximetry Respiratory rate Body temperature Heart rate Systolic And Diastolic Provider Name and Address Organization Details Last Updated DateTime 9 97 % 97 % 16 /min 100.7 [degF] 68 /min 110/48 mm[Hg] Not Available [facility] 9 18:55:39 Social History Question Answer Notes LastModified by Organizat ion Details LastModified Time Tobacco Smoking Status Former Smoker MAXIMO BERG, VERA [address] [place], [address], [place] [facility] 05/28/2018 18:52:22 What Was The Date Of Your Most Recent Tobacco Screening? 05/28/2018 Information not available 10/10/2018 How Much Tobacco Do You Smoke? 0.5 PPD Information not available 05/28/2018 How Many Years Have You Smoked Tobacco? 30 Information not available 05/28/2018 Sex: Unknown Functional Status None recorded. Mental Status None recorded. Family History Relationship Description Onset Age of this Age Resolved Age Notes LastModified by Organization Details LastModified Time Mother Heart disease Not available 05/28 18:52:13 Medical History Condition Response Diabetes N Coronary Artery Disease N High Cholesterol N Pulmonary Embolism N Cancer N Hypertension N Stroke N COPD Y Depression N Asthma N Kidney Disease N Gynecological HistoryNo gynecological history recorded. Obstetrics History GPAL:G 0 P 0 0 0 0 Past Encounters Encounter ID Performer Location Encounter Start Date Encounter Closed Date Diagnosis/Indication Diagnosis SNOMED-CT Code Diagnosis ICD10 Code Diagnosis Note [id number] MAXIMO [facility]A [facility] [address] [place] [address] 05/28/2018 18:49:22 05/28/2018 19:25:22 Influenza-like illness 12003410 B34.9 Health Concerns Section Related Observation LastModified by Organization Detai ls LastModified Time None Recorded Concern Status LastModified by Organization Details LastModified Time None Recorded Advance Directives Directive None Recorded Payers Insurance Date Sequence Insurance Name Policy Number Policy Pitts Covered Member ID Pitts Member ID Guarantor Name 05/28/2018 1 [facility] [id number] 1 Fatemeh Caliento [id number] Fatemeh Caliento 05/28/2018 1 *SELF PAY* Fatemeh Briceiento [id number] Fatemeh Caliento 06/09/2018 1 [facility] [id number] Fatemeh Caliento [id number] Fatemeh Caliento 05/28/2018 1 [facility] [id number] Fatemeh Caliento [id number] Fatemeh Caliento 05/28/2018 1 [facility] [id number] Fatemeh Caliento [id number] Fatemeh Andrea Notes Date Note Type Note Provider Name and Address Organization Details Recorded Time 05/28/2018 text/html 57-year-old fema jacquie, new to with a past medical history of GERD, emphysema, who is a former smoker was evaluated for complaints of a fever and URI symptoms over the past 3 days. Her is also ill with similar symptoms. She complains of an intermittent fever, myalgias, arthralgias and a slight nonproductive cough with rhinitis. She denies any chest pain, shortness of breath, abdominal pain, nausea, vomiting diarrhea, arthralgias or any rashes. MAXIMO BERG NP [address] [facility], [place], [address], [place] - [facility] 06/09/2018 08:15:29 OBGyn Episode No OBEpisode recorded.
== END 2024-09-23 15:56 | disposition home or self-care (01) ==
LOC: HO.HPS 15:23
PROVIDERS: PCP Internal Medicine; Visit Provider Hospitalist
DX: J41.0 Simple chronic bronchitis (principal); R91.8 Other nonspecific abnormal finding of lung field
CPT/HCPCS: 99214; G2211